=== PATIENT | male | born 1965 | race African-American/Black ===

== ENCOUNTER 2023-08-02 19:09 | Inpatient (IN) | payer BC ==
[2023-08-02] MEDS ORDERED: ACETAMINOPHEN INJECTION 100 ML IVPB ONE (19:51)
[2023-08-02 19:58] LABS: HEMATOCRIT 39.3 % (35.4-49); HEMOGLOBIN 13.3 GM/dL (11.7-16.9); MCH 32.4 pg (25.7-33.7); MCHC 33.8 g/dl (32.0-35.9); MEAN PLT VOLUME 8.6 fl (7.5-11.1); PLATELET COUNT 224 10^3/uL (134-434); RBC 4.09 M/mm3 (4.00-5.60); RDW 12.4 % (11.9-15.9)
[2023-08-02] MEDS: ACETAMINOPHEN 1000 MG/100 ML BAG IVPB ONE (20:03)
[2023-08-02] MEDS: LACTATED RINGERS SOLUTION 1000 ML INFUS.BAG IV ONE (20:03)
[2023-08-02 20:04] LABS: VENOUS BASE EXCESS -3.8 mmol/L (-2-2); VENOUS O2 SATURATION 92.3 % (70-80); VENOUS PCO2 30.3 mmHg (38-52); VENOUS PH 7.424 (7.310-7.410)
[2023-08-02 20:05] LABS: INR 1.17 (0.83-1.09); PROTHROMBIN TIME (PATIENT) 13.2 SEC (9.7-13.0)
[2023-08-02 20:18] LABS: POTASSIUM 3.4 mmol/L (3.5-5.1)
[2023-08-02 20:20] LABS: ALBUMIN 3.6 g/dl (3.4-5.0); CALCIUM 8.3 mg/dL (8.5-10.1)
[2023-08-02 20:23] LABS: CREATININE 1.3 mg/dL (0.55-1.3)
[2023-08-02 20:25] LABS: BILIRUBIN,TOTAL 1.1 mg/dL (0.2-1); TOT PROT 6.5 g/dl (6.4-8.2)
[2023-08-02] MEDS: SODIUM CHLORIDE 0.9% 500 ML INFUS.BAG IV ONE (20:51)
[2023-08-02 21:26] LABS: ANISOCYTOSIS 0; MACROCYTOSIS 0
[2023-08-02] MEDS: IMIPENEM/CILASTATIN SODIUM 500 MG in SODIUM CHLORIDE 100 ML IVPB ONE (21:53)
[2023-08-02 22:00] LABS: EPI CELLS 3 /uL (0-25.1); HYALINE CASTS 1 /uL (0-3.1); URINE APPEARANCE CLEAR; URINE BACTERIA 20 /uL (0-1359); URINE BILIRUBIN NEGATIVE (NEGATIVE); URINE COLOR YELLOW; URINE GLUCOSE (UA) NEGATIVE (NEGATIVE); URINE KETONE NEGATIVE (NEGATIVE); URINE LEUK ESTERASE TRACE (NEGATIVE); URINE NITRITE NEGATIVE (NEGATIVE); URINE PROTEIN NEGATIVE (NEGATIVE); URINE RBC 29 /uL (0-23.9); URINE UROBILINOGEN 0.2 mg/dL (0.2-1.0); URINE WBC 64 /uL (0-25.8)
[2023-08-02 22:10] VITALS: RESP 18
[2023-08-02] MEDS: SODIUM CHLORIDE 1,000 ML IV SCH (22:38)
[2023-08-03] MEDS: KCL 10 MEQ IVPB 10 MEQ/100 ML INFUS.BAG IVPB SCH (01:15)
[2023-08-03 01:44] VITALS: BMI 24.3
[2023-08-03] MEDS: IMIPENEM/CILASTATIN SODIUM 500 MG in SODIUM CHLORIDE 100 ML IVPB SCH ×2 (04:15→16:45)
[2023-08-03 08:55] LABS: HEMATOCRIT 35.2 % (35.4-49); HEMOGLOBIN 12.1 GM/dL (11.7-16.9); MCH 33.3 pg (25.7-33.7); MCHC 34.5 g/dl (32.0-35.9); MEAN CELL VOLUME 96.7 fl (80-96); MEAN PLT VOLUME 9.1 fl (7.5-11.1); PLATELET COUNT 172 10^3/uL (134-434); RBC 3.63 M/mm3 (4.00-5.60); RDW 12.4 % (11.9-15.9); WHITE BLOOD COUNT 20.9 K/mm3 (4.0-10.0)
[2023-08-03 09:08] LABS: POTASSIUM 3.3 mmol/L (3.5-5.1)
[2023-08-03 09:21] LABS: CALCIUM 7.9 mg/dL (8.5-10.1); MAGNESIUM 1.8 mg/dL (1.8-2.4)
[2023-08-03 09:24] LABS: PHOSPHOROUS 2.3 mg/dL (2.5-4.9)
[2023-08-03 09:25] LABS: CREATININE 1.1 mg/dL (0.55-1.3)
[2023-08-03] MEDS: PIPERACILLIN/TAZOB 4.5 GM 4.5 GM in DEXTROSE 5%-WATER 100 ML IVPB SCH (16:16)
[2023-08-05] MEDS: MEROPENEM 1 GM in DEXTROSE 5%-WATER 100 ML IVPB SCH (11:41)
[2023-08-05] MEDS ORDERED: VANCOMYCIN 250 MG/5 ML ORAL SOLUTION (RESTRICTED TO ID ONLY) PO SCH (12:00)
[2023-08-05] MEDS: VANCOMYCIN ORAL SOLUTION 125 MG/2.5 ML PO SCH (12:16)
[2023-08-06] MEDS: ACETAMINOPHEN 325 MG TABLET (FP) PO PRN (05:08)
[2023-08-06 07:57] LABS: BASO % 0.2 % (0-2.0); EOS % 0.9 % (0-4.5); HEMATOCRIT 33.1 % (35.4-49); HEMOGLOBIN 11.3 GM/dL (11.7-16.9); LYMPH % 19.5 % (8-40); MCH 33.2 pg (25.7-33.7); MCHC 34.1 g/dl (32.0-35.9); MEAN CELL VOLUME 97.3 fl (80-96); MEAN PLT VOLUME 8.5 fl (7.5-11.1); MONO % 19.9 % (3.8-10.2); NEUT % 59.5 % (42.8-82.8); PLATELET COUNT 208 10^3/uL (134-434); RDW 12.5 % (11.9-15.9); WHITE BLOOD COUNT 7.2 K/mm3 (4.0-10.0)
[2023-08-06 08:04] LABS: POTASSIUM 3.6 mmol/L (3.5-5.1)
[2023-08-06 08:17] LABS: BLOOD UREA NITROGEN 6.8 mg/dL (7-18); CALCIUM 8.2 mg/dL (8.5-10.1)
[2023-08-06 08:21] LABS: CREATININE 0.8 mg/dL (0.55-1.3)
[2023-08-06 08:22] LABS: BILIRUBIN,TOTAL 0.6 mg/dL (0.2-1); TOT PROT 5.6 g/dl (6.4-8.2)
[2023-08-06 08:27] LABS: ALBUMIN 2.6 g/dl (3.4-5.0)
[2023-08-07 07:55] LABS: BASO % 0.3 % (0-2.0); EOS % 0.9 % (0-4.5); HEMATOCRIT 34.4 % (35.4-49); HEMOGLOBIN 11.8 GM/dL (11.7-16.9); LYMPH % 27.1 % (8-40); MCHC 34.2 g/dl (32.0-35.9); MEAN CELL VOLUME 96.5 fl (80-96); MEAN PLT VOLUME 8.3 fl (7.5-11.1); MONO % 16.7 % (3.8-10.2); PLATELET COUNT 252 10^3/uL (134-434); RBC 3.56 M/mm3 (4.00-5.60); RDW 12.5 % (11.9-15.9); WHITE BLOOD COUNT 6.9 K/mm3 (4.0-10.0)
[2023-08-07 08:35] LABS: ALBUMIN 2.9 g/dl (3.4-5.0); BILIRUBIN,TOTAL 0.6 mg/dL (0.2-1); BLOOD UREA NITROGEN 6.7 mg/dL (7-18); CALCIUM 8.5 mg/dL (8.5-10.1); CREATININE 0.8 mg/dL (0.55-1.3); POTASSIUM 3.8 mmol/L (3.5-5.1); TOT PROT 6.1 g/dl (6.4-8.2)
[2023-08-09 08:33] VITALS: TEMP 98.6
[2023-08-09 14:43] VITALS: BP 125/70; PULSE 66
== END 2023-08-09 15:35 | disposition home or self-care (01) | DRG 698 ==
LOC: JER 19:09 → JERBED 21:01 → J6S 23:54
PROVIDERS: ADMIT Internal Medicine; ATTEND Internal Medicine
PROC: 0T9B70Z Drainage of Bladder with Drainage Device, Via Natural or Artificial Opening (ICD-10-PCS; principal; 2023-08-03)
DX: N99.89 Other postprocedural complications and disorders of genitourinary system (principal); A41.89 Other specified sepsis; N39.0 Urinary tract infection, site not specified; I10 Essential (primary) hypertension; N41.9 Inflammatory disease of prostate, unspecified; D72.829 Elevated white blood cell count, unspecified
CPT/HCPCS: 0241U-QW; 36415; 71046-TC-FY; 74176-TC; 80048; 80053; 81003; 82803; 83605; 83735; 84100; 84484; 85025; 85027; 85610; 86850; 86900; 86901; 87040; 87086; 87186; 87324; 87449; 93005; 93010; 99285-25; J0131

== ENCOUNTER 2023-08-30 21:40 | Inpatient (IN) | payer BC ==
[2023-08-30] MEDS ORDERED: morphine SULFATE 4 MG/ML VIAL ONE (22:50)
[2023-08-30] MEDS: morphine SULFATE 4 MG/ML VIAL IVPUSH ONE (22:53)
[2023-08-30 23:15] LABS: BASO % 0.2 % (0-2.0); HEMATOCRIT 34.9 % (35.4-49); HEMOGLOBIN 11.7 GM/dL (11.7-16.9); LYMPH % 8.6 % (8-40); MCH 31.7 pg (25.7-33.7); MCHC 33.6 g/dl (32.0-35.9); MEAN CELL VOLUME 94.5 fl (80-96); MEAN PLT VOLUME 7.8 fl (7.5-11.1); MONO % 8.7 % (3.8-10.2); NEUT % 82.5 % (42.8-82.8); PLATELET COUNT 389 10^3/uL (134-434); RBC 3.69 M/mm3 (4.00-5.60); RDW 12.8 % (11.9-15.9); WHITE BLOOD COUNT 15.7 K/mm3 (4.0-10.0)
[2023-08-30 23:23] LABS: INR 1.04 (0.83-1.09); PROTHROMBIN TIME (PATIENT) 11.9 SEC (9.7-13.0)
[2023-08-30 23:26] LABS: ACTIVATED PTT 33.9 SECONDS (25.2-36.5)
[2023-08-30 23:27] LABS: POTASSIUM 3.8 mmol/L (3.5-5.1)
[2023-08-30 23:29] LABS: CALCIUM 8.7 mg/dL (8.5-10.1)
[2023-08-30 23:30] LABS: ALBUMIN 3.4 g/dl (3.4-5.0); BLOOD UREA NITROGEN 4.9 mg/dL (7-18)
[2023-08-30 23:33] LABS: CREATININE 1.1 mg/dL (0.55-1.3)
[2023-08-30 23:35] LABS: BILIRUBIN,TOTAL 0.6 mg/dL (0.2-1); TOT PROT 7.5 g/dl (6.4-8.2)
[2023-08-30 23:41] LABS: LACTIC ACID 2.9 mmol/L (0.4-2.0)
[2023-08-31] MEDS: SODIUM CHLORIDE 0.9% 500 ML INFUS.BAG IV ONE (00:09)
[2023-08-31 02:14] LABS: EPI CELLS 0 /uL (0-25.1); HYALINE CASTS 1 /uL (0-3.1); PH,URINE 7.5 (5.0-8.0); URINE APPEARANCE CLOUDY; URINE BACTERIA >9,000 /uL (0-1359); URINE BILIRUBIN NEGATIVE (NEGATIVE); URINE COLOR YELLOW; URINE GLUCOSE (UA) NEGATIVE (NEGATIVE); URINE KETONE NEGATIVE (NEGATIVE); URINE LEUK ESTERASE 2+ (NEGATIVE); URINE NITRITE NEGATIVE (NEGATIVE); URINE PROTEIN TRACE (NEGATIVE); URINE RBC 20 /uL (0-23.9); URINE UROBILINOGEN 0.2 mg/dL (0.2-1.0); URINE WBC 869 /uL (0-25.8)
[2023-08-31] MEDS ORDERED: PIPERACILLIN/TAZOB 3.375 GM 3.375 GM/50 ML BAG IVPB ONE ×2 (02:31→10:23)
[2023-08-31] MEDS: PIPERACILLIN/TAZOB 3.375 GM 3.375 GM in DEXTROSE 5%-WATER - 50 ML IVPB ONE (03:22)
[2023-08-31] MEDS ORDERED: DOCUSATE SODIUM 100 MG CAPSULE (FP) PO PRN (05:19)
[2023-08-31] MEDS ORDERED: morphine SULFATE 4 MG/ML VIAL IVPUSH PRN (05:31)
[2023-08-31 07:19] LABS: HEMATOCRIT 32.7 % (35.4-49); HEMOGLOBIN 11.1 GM/dL (11.7-16.9); MCH 32.3 pg (25.7-33.7); MCHC 33.9 g/dl (32.0-35.9); MEAN CELL VOLUME 95.3 fl (80-96); MEAN PLT VOLUME 7.7 fl (7.5-11.1); PLATELET COUNT 360 10^3/uL (134-434); RBC 3.43 M/mm3 (4.00-5.60); RDW 12.8 % (11.9-15.9); WHITE BLOOD COUNT 27.6 K/mm3 (4.0-10.0)
[2023-08-31 07:36] LABS: MAGNESIUM 1.9 mg/dL (1.8-2.4)
[2023-08-31 07:39] LABS: PHOSPHOROUS 3.3 mg/dL (2.5-4.9)
[2023-08-31] MEDS: D5-1/2NS+20 MEQ KCL - 20 MEQ/1,000 ML INFUS.BAG IV SCH (07:50)
[2023-08-31] MEDS: POLYETHYLENE GLYCOL (HEALTHYLAX) 3350 17 GM PACKET PO SCH (09:55)
[2023-08-31] MEDS: TAMSULOSIN HCL 0.4 MG CAP PO SCH ×2 (09:55→22:04)
[2023-08-31 10:00] LABS: ANISOCYTOSIS 0; HELMET CELLS 0; HOWELL-JOLLY BODIES 0; MACROCYTOSIS 0; OVALOCYTE 0; ROULEAU 0; SICKELED CELLS 0; TARGET CELLS 0; TEAR DROP CELLS 0; TOXIC GRANULATION 0
[2023-08-31] MEDS ORDERED: LISINOPRIL 10 MG TABLET ONE (10:24)
[2023-08-31] MEDS ORDERED: TAMSULOSIN HCL 0.4 MG CAP ONE (10:24)
[2023-08-31] MEDS ORDERED: POLYETHYLENE GLYCOL (HEALTHYLAX) 3350 17 GM PACKET ONE (10:24)
[2023-08-31] MEDS ORDERED: amLODIPine BESYLATE 10 MG TABLET (FP) ONE (10:24)
[2023-08-31] MEDS: amLODIPine BESYLATE 10 MG TABLET (FP) PO SCH (10:48)
[2023-08-31] MEDS: LISINOPRIL 10 MG TABLET PO SCH (10:48)
[2023-08-31] MEDS: PIPERACILLIN/TAZOB 3.375 GM 3.375 GM in DEXTROSE 5%-WATER - 50 ML IVPB SCH ×2 (10:48→18:27)
[2023-08-31 17:46] VITALS: BMI 22.6
[2023-08-31] MEDS: ACETAMINOPHEN 1000 MG/100 ML BAG IVPB PRN (19:16)
[2023-08-31] MEDS: ROSUVASTATIN CA 20 MG TABLET PO SCH (22:04)
[2023-08-31] MEDS: DOCUSATE SODIUM 100 MG CAPSULE (FP) PO SCH (22:04)
[2023-08-31] MEDS: HEPARIN NA (PORCINE) 5,000 UNITS/ML 1ML VIAL SQ SCH (22:04)
[2023-09-01 09:21] LABS: HEMATOCRIT 31.7 % (35.4-49); HEMOGLOBIN 10.7 GM/dL (11.7-16.9); MCH 31.9 pg (25.7-33.7); MCHC 33.7 g/dl (32.0-35.9); MEAN CELL VOLUME 94.6 fl (80-96); MEAN PLT VOLUME 7.9 fl (7.5-11.1); PLATELET COUNT 324 10^3/uL (134-434); RBC 3.35 M/mm3 (4.00-5.60); RDW 12.9 % (11.9-15.9)
[2023-09-01 09:40] LABS: POTASSIUM 3.7 mmol/L (3.5-5.1)
[2023-09-01 09:49] LABS: CALCIUM 8.7 mg/dL (8.5-10.1)
[2023-09-01 09:50] LABS: ALBUMIN 2.8 g/dl (3.4-5.0)
[2023-09-01 09:53] LABS: CREATININE 0.9 mg/dL (0.55-1.3)
[2023-09-01 09:54] LABS: BILIRUBIN,TOTAL 0.9 mg/dL (0.2-1)
[2023-09-01 09:55] LABS: TOT PROT 6.4 g/dl (6.4-8.2)
[2023-09-01 10:12] LABS: ANISOCYTOSIS 0; HELMET CELLS 0; HOWELL-JOLLY BODIES 0; MACROCYTOSIS 0; OVALOCYTE 0; ROULEAU 0; SICKELED CELLS 0; TARGET CELLS 0; TEAR DROP CELLS 0; TOXIC GRANULATION 0
[2023-09-01] MEDS: ACETAMINOPHEN 325 MG TABLET (FP) PO PRN (17:55)
[2023-09-02 09:45] LABS: HEMATOCRIT 29.4 % (35.4-49); HEMOGLOBIN 9.9 GM/dL (11.7-16.9); MCHC 33.7 g/dl (32.0-35.9); MEAN CELL VOLUME 95.1 fl (80-96); MEAN PLT VOLUME 7.9 fl (7.5-11.1); PLATELET COUNT 295 10^3/uL (134-434); RBC 3.09 M/mm3 (4.00-5.60); RDW 12.9 % (11.9-15.9); WHITE BLOOD COUNT 24.1 K/mm3 (4.0-10.0)
[2023-09-02 10:09] LABS: ANISOCYTOSIS 0; MACROCYTOSIS 0
[2023-09-02 10:33] LABS: ALBUMIN 2.3 g/dl (3.4-5.0); POTASSIUM 3.7 mmol/L (3.5-5.1)
[2023-09-02 10:34] LABS: CALCIUM 7.9 mg/dL (8.5-10.1)
[2023-09-02 10:37] LABS: BILIRUBIN,TOTAL 0.9 mg/dL (0.2-1); CREATININE 0.8 mg/dL (0.55-1.3)
[2023-09-02 10:38] LABS: TOT PROT 5.8 g/dl (6.4-8.2)
[2023-09-02] MEDS: ONDANSETRON 4 MG/2 ML VIAL IVPUSH PRN (12:47)
[2023-09-03 09:32] LABS: BASO % 0.1 % (0-2.0); HEMATOCRIT 27.8 % (35.4-49); HEMOGLOBIN 9.4 GM/dL (11.7-16.9); LYMPH % 6.6 % (8-40); MCH 31.6 pg (25.7-33.7); MCHC 33.7 g/dl (32.0-35.9); MEAN CELL VOLUME 93.8 fl (80-96); MEAN PLT VOLUME 7.5 fl (7.5-11.1); MONO % 9.4 % (3.8-10.2); NEUT % 83.9 % (42.8-82.8); PLATELET COUNT 308 10^3/uL (134-434); RBC 2.96 M/mm3 (4.00-5.60); WHITE BLOOD COUNT 19.9 K/mm3 (4.0-10.0)
[2023-09-03 09:47] LABS: POTASSIUM 3.7 mmol/L (3.5-5.1)
[2023-09-03 09:52] LABS: ALBUMIN 2.2 g/dl (3.4-5.0); BLOOD UREA NITROGEN 7.4 mg/dL (7-18); CALCIUM 8.1 mg/dL (8.5-10.1)
[2023-09-03 09:54] LABS: CREATININE 0.8 mg/dL (0.55-1.3)
[2023-09-03 09:57] LABS: BILIRUBIN,TOTAL 1.1 mg/dL (0.2-1); TOT PROT 5.7 g/dl (6.4-8.2)
[2023-09-03] MEDS: MEROPENEM 1 GM in DEXTROSE 5%-WATER 100 ML IVPB SCH ×3 (10:53→18:34)
[2023-09-03] MEDS: POLYETHYLENE GLYCOL (HEALTHYLAX) 3350 17 GM PACKET PO SCH (15:16)
[2023-09-04 09:38] LABS: BASO % 0.1 % (0-2.0); EOS % 0.1 % (0-4.5); HEMATOCRIT 28.2 % (35.4-49); HEMOGLOBIN 9.6 GM/dL (11.7-16.9); LYMPH % 6.7 % (8-40); MCH 31.8 pg (25.7-33.7); MCHC 33.8 g/dl (32.0-35.9); MEAN CELL VOLUME 93.9 fl (80-96); MEAN PLT VOLUME 7.8 fl (7.5-11.1); MONO % 9.1 % (3.8-10.2); PLATELET COUNT 347 10^3/uL (134-434); RBC 3.01 M/mm3 (4.00-5.60); RDW 13.3 % (11.9-15.9); WHITE BLOOD COUNT 19.6 K/mm3 (4.0-10.0)
[2023-09-04 10:01] LABS: BLOOD UREA NITROGEN 7.6 mg/dL (7-18); CALCIUM 8.2 mg/dL (8.5-10.1)
[2023-09-04 10:03] LABS: ALBUMIN 2.1 g/dl (3.4-5.0)
[2023-09-04 10:05] LABS: CREATININE 0.8 mg/dL (0.55-1.3)
[2023-09-05 08:01] LABS: BASO % 0.3 % (0-2.0); EOS % 0.1 % (0-4.5); HEMATOCRIT 28.1 % (35.4-49); HEMOGLOBIN 9.5 GM/dL (11.7-16.9); LYMPH % 9.3 % (8-40); MCH 31.9 pg (25.7-33.7); MCHC 33.6 g/dl (32.0-35.9); MEAN PLT VOLUME 7.4 fl (7.5-11.1); MONO % 10.3 % (3.8-10.2); PLATELET COUNT 368 10^3/uL (134-434); RBC 2.96 M/mm3 (4.00-5.60); RDW 13.2 % (11.9-15.9)
[2023-09-05 08:20] LABS: POTASSIUM 4.2 mmol/L (3.5-5.1)
[2023-09-05 08:24] LABS: CALCIUM 8.4 mg/dL (8.5-10.1)
[2023-09-05 08:25] LABS: BLOOD UREA NITROGEN 6.9 mg/dL (7-18)
[2023-09-05 08:27] LABS: CREATININE 0.8 mg/dL (0.55-1.3)
[2023-09-05 09:04] LABS: ALBUMIN 2.2 g/dl (3.4-5.0)
[2023-09-05 18:11] LABS: GLIADIN ANTIBODY IGA 5 units (0-19); GLIADIN ANTIBODY IGG 2 units (0-19); TRANSGLUTAMINASE IGG 3 U/mL (0-5)
[2023-09-06 07:55] LABS: BASO % 0.3 % (0-2.0); EOS % 0.3 % (0-4.5); LYMPH % 8.6 % (8-40); MCH 31.2 pg (25.7-33.7); MCHC 33.1 g/dl (32.0-35.9); MEAN CELL VOLUME 94.2 fl (80-96); MEAN PLT VOLUME 7.6 fl (7.5-11.1); MONO % 10.5 % (3.8-10.2); NEUT % 80.3 % (42.8-82.8); PLATELET COUNT 418 10^3/uL (134-434); RBC 2.87 M/mm3 (4.00-5.60); RDW 13.6 % (11.9-15.9); WHITE BLOOD COUNT 19.6 K/mm3 (4.0-10.0)
[2023-09-06 08:01] LABS: POTASSIUM 4.2 mmol/L (3.5-5.1)
[2023-09-06 08:03] LABS: CALCIUM 8.5 mg/dL (8.5-10.1)
[2023-09-06 08:04] LABS: ALBUMIN 2.1 g/dl (3.4-5.0); BLOOD UREA NITROGEN 7.6 mg/dL (7-18)
[2023-09-06 08:06] LABS: CREATININE 0.8 mg/dL (0.55-1.3)
[2023-09-06 08:08] LABS: BILIRUBIN,TOTAL 0.8 mg/dL (0.2-1); TOT PROT 5.9 g/dl (6.4-8.2)
[2023-09-08 09:02] LABS: HEMATOCRIT 24.3 % (35.4-49); HEMOGLOBIN 8.2 GM/dL (11.7-16.9); MCH 31.5 pg (25.7-33.7); MEAN CELL VOLUME 92.8 fl (80-96); MEAN PLT VOLUME 7.3 fl (7.5-11.1); PLATELET COUNT 505 10^3/uL (134-434); RBC 2.62 M/mm3 (4.00-5.60); RDW 13.5 % (11.9-15.9); WHITE BLOOD COUNT 21.5 K/mm3 (4.0-10.0)
[2023-09-08 09:20] LABS: POTASSIUM 4.3 mmol/L (3.5-5.1)
[2023-09-08 09:23] LABS: CALCIUM 8.1 mg/dL (8.5-10.1)
[2023-09-08 09:24] LABS: BLOOD UREA NITROGEN 7.9 mg/dL (7-18)
[2023-09-08 09:27] LABS: CREATININE 0.7 mg/dL (0.55-1.3)
[2023-09-08 09:29] LABS: BILIRUBIN,TOTAL 0.6 mg/dL (0.2-1); TOT PROT 6.2 g/dl (6.4-8.2)
[2023-09-08 09:50] LABS: ANISOCYTOSIS 0; MACROCYTOSIS 0
[2023-09-09] MEDS: ENOXAPARIN NA (PORCINE) 40 MG/0.4 ML DISP.SYRIN SQ SCH (09:09)
[2023-09-09 09:28] LABS: HEMATOCRIT 26.3 % (35.4-49); HEMOGLOBIN 8.8 GM/dL (11.7-16.9); MCHC 33.3 g/dl (32.0-35.9); MEAN CELL VOLUME 93.1 fl (80-96); MEAN PLT VOLUME 7.4 fl (7.5-11.1); PLATELET COUNT 585 10^3/uL (134-434); RBC 2.83 M/mm3 (4.00-5.60); RDW 13.8 % (11.9-15.9); WHITE BLOOD COUNT 20.7 K/mm3 (4.0-10.0)
[2023-09-09 09:45] LABS: POTASSIUM 4.4 mmol/L (3.5-5.1)
[2023-09-09 09:47] LABS: ALBUMIN 2.2 g/dl (3.4-5.0); CALCIUM 8.6 mg/dL (8.5-10.1)
[2023-09-09 09:48] LABS: BLOOD UREA NITROGEN 7.7 mg/dL (7-18)
[2023-09-09 09:50] LABS: CREATININE 0.7 mg/dL (0.55-1.3)
[2023-09-09 09:52] LABS: BILIRUBIN,TOTAL 0.6 mg/dL (0.2-1); TOT PROT 6.6 g/dl (6.4-8.2)
[2023-09-09 10:30] LABS: ANISOCYTOSIS 0; MACROCYTOSIS 0
[2023-09-09 14:08] LABS: IG A QN SERUM. 173 mg/dL (90-386)
[2023-09-09] MEDS: IRON SUCROSE INJECTION 200 MG in SODIUM CHLORIDE 100 ML IVPB ONE (20:59)
[2023-09-10 09:47] LABS: HEMOGLOBIN 8.2 GM/dL (11.7-16.9); MCH 30.7 pg (25.7-33.7); MEAN CELL VOLUME 93.1 fl (80-96); MEAN PLT VOLUME 7.4 fl (7.5-11.1); PLATELET COUNT 626 10^3/uL (134-434); RBC 2.68 M/mm3 (4.00-5.60); RDW 14.4 % (11.9-15.9); WHITE BLOOD COUNT 20.7 K/mm3 (4.0-10.0)
[2023-09-10 09:57] LABS: POTASSIUM 4.6 mmol/L (3.5-5.1)
[2023-09-10 10:03] LABS: BLOOD UREA NITROGEN 9.9 mg/dL (7-18)
[2023-09-10 10:04] LABS: CALCIUM 8.4 mg/dL (8.5-10.1)
[2023-09-10 10:05] LABS: ALBUMIN 2.1 g/dl (3.4-5.0)
[2023-09-10 10:07] LABS: CREATININE 0.7 mg/dL (0.55-1.3)
[2023-09-10 10:09] LABS: TOT PROT 6.6 g/dl (6.4-8.2)
[2023-09-10 10:11] LABS: BILIRUBIN,TOTAL 0.6 mg/dL (0.2-1)
[2023-09-10 13:06] LABS: ANISOCYTOSIS 0; MACROCYTOSIS 0
[2023-09-10 13:11] LABS: PLATELET ESTIMATE INCREASED
[2023-09-11 08:31] LABS: HEMATOCRIT 23.2 % (35.4-49); HEMOGLOBIN 7.7 GM/dL (11.7-16.9); MEAN CELL VOLUME 94.1 fl (80-96); MEAN PLT VOLUME 7.4 fl (7.5-11.1); PLATELET COUNT 624 10^3/uL (134-434); RBC 2.47 M/mm3 (4.00-5.60); RDW 14.1 % (11.9-15.9); WHITE BLOOD COUNT 20.1 K/mm3 (4.0-10.0)
[2023-09-11 09:34] LABS: POTASSIUM 4.6 mmol/L (3.5-5.1)
[2023-09-11 09:37] LABS: ALBUMIN 2.2 g/dl (3.4-5.0); BLOOD UREA NITROGEN 8.2 mg/dL (7-18); CALCIUM 8.4 mg/dL (8.5-10.1)
[2023-09-11 09:41] LABS: CREATININE 0.8 mg/dL (0.55-1.3)
[2023-09-11 09:42] LABS: BILIRUBIN,TOTAL 0.5 mg/dL (0.2-1)
[2023-09-11 09:43] LABS: TOT PROT 6.3 g/dl (6.4-8.2)
[2023-09-11 12:06] LABS: PLATELET ESTIMATE INCREASED
[2023-09-12 09:37] LABS: POTASSIUM 4.4 mmol/L (3.5-5.1)
[2023-09-12 09:43] LABS: HEMATOCRIT 24.3 % (35.4-49); MCH 30.7 pg (25.7-33.7); MCHC 33.1 g/dl (32.0-35.9); MEAN CELL VOLUME 92.7 fl (80-96); MEAN PLT VOLUME 7.1 fl (7.5-11.1); PLATELET COUNT 689 10^3/uL (134-434); RBC 2.62 M/mm3 (4.00-5.60); RDW 14.3 % (11.9-15.9); WHITE BLOOD COUNT 20.2 K/mm3 (4.0-10.0)
[2023-09-12 10:05] LABS: CALCIUM 8.7 mg/dL (8.5-10.1)
[2023-09-12 10:06] LABS: ALBUMIN 2.2 g/dl (3.4-5.0); BLOOD UREA NITROGEN 8.6 mg/dL (7-18)
[2023-09-12 10:08] LABS: CREATININE 0.8 mg/dL (0.55-1.3)
[2023-09-12 10:09] LABS: BILIRUBIN,TOTAL 0.5 mg/dL (0.2-1); TOT PROT 6.5 g/dl (6.4-8.2)
[2023-09-12 11:29] LABS: ANISOCYTOSIS 0; HELMET CELLS 0; HOWELL-JOLLY BODIES 0; MACROCYTOSIS 0; OVALOCYTE 0; ROULEAU 0; SICKELED CELLS 0; TARGET CELLS 0; TEAR DROP CELLS 0; TOXIC GRANULATION 0
[2023-09-14] MEDS: ERTAPENEM SODIUM 1 GM in SODIUM CHLORIDE 50 ML IVPB SCH (18:06)
[2023-09-15 08:30] LABS: BASO % 0.2 % (0-2.0); EOS % 0.7 % (0-4.5); HEMATOCRIT 25.7 % (35.4-49); HEMOGLOBIN 8.7 GM/dL (11.7-16.9); LYMPH % 17.8 % (8-40); MCH 31.3 pg (25.7-33.7); MCHC 33.8 g/dl (32.0-35.9); MEAN CELL VOLUME 92.6 fl (80-96); MEAN PLT VOLUME 7.2 fl (7.5-11.1); MONO % 7.2 % (3.8-10.2); NEUT % 74.1 % (42.8-82.8); PLATELET COUNT 730 10^3/uL (134-434); RBC 2.78 M/mm3 (4.00-5.60); RDW 15.2 % (11.9-15.9); WHITE BLOOD COUNT 16.3 K/mm3 (4.0-10.0)
[2023-09-15 08:41] LABS: POTASSIUM 4.6 mmol/L (3.5-5.1)
[2023-09-15 08:43] LABS: CALCIUM 8.9 mg/dL (8.5-10.1)
[2023-09-15 08:44] LABS: BLOOD UREA NITROGEN 7.9 mg/dL (7-18)
[2023-09-15 08:47] LABS: CREATININE 0.9 mg/dL (0.55-1.3)
[2023-09-16 10:18] LABS: BASO % 0.2 % (0-2.0); EOS % 0.9 % (0-4.5); HEMATOCRIT 24.1 % (35.4-49); HEMOGLOBIN 7.9 GM/dL (11.7-16.9); LYMPH % 15.4 % (8-40); MCH 30.3 pg (25.7-33.7); MCHC 32.9 g/dl (32.0-35.9); MEAN CELL VOLUME 92.2 fl (80-96); MEAN PLT VOLUME 7.2 fl (7.5-11.1); MONO % 7.3 % (3.8-10.2); NEUT % 76.2 % (42.8-82.8); PLATELET COUNT 621 10^3/uL (134-434); RBC 2.61 M/mm3 (4.00-5.60); RDW 15.1 % (11.9-15.9); WHITE BLOOD COUNT 13.1 K/mm3 (4.0-10.0)
[2023-09-16 10:23] LABS: POTASSIUM 4.3 mmol/L (3.5-5.1)
[2023-09-16 10:24] LABS: CALCIUM 8.8 mg/dL (8.5-10.1)
[2023-09-16 10:25] LABS: BLOOD UREA NITROGEN 9.5 mg/dL (7-18)
[2023-09-16 10:28] LABS: CREATININE 0.8 mg/dL (0.55-1.3)
[2023-09-17 08:48] LABS: BASO % 0.2 % (0-2.0); EOS % 1.1 % (0-4.5); HEMOGLOBIN 7.8 GM/dL (11.7-16.9); LYMPH % 20.7 % (8-40); MCH 31.4 pg (25.7-33.7); MCHC 33.9 g/dl (32.0-35.9); MEAN CELL VOLUME 92.6 fl (80-96); MEAN PLT VOLUME 7.2 fl (7.5-11.1); MONO % 9.6 % (3.8-10.2); NEUT % 68.4 % (42.8-82.8); PLATELET COUNT 576 10^3/uL (134-434); RBC 2.49 M/mm3 (4.00-5.60); RDW 15.1 % (11.9-15.9); WHITE BLOOD COUNT 12.2 K/mm3 (4.0-10.0)
[2023-09-17 09:05] LABS: POTASSIUM 4.4 mmol/L (3.5-5.1)
[2023-09-17 09:09] LABS: BLOOD UREA NITROGEN 12.5 mg/dL (7-18)
[2023-09-17 09:12] LABS: CALCIUM 8.7 mg/dL (8.5-10.1); CREATININE 0.8 mg/dL (0.55-1.3)
[2023-09-18 12:39] LABS: BASO % 0.3 % (0-2.0); EOS % 1.1 % (0-4.5); HEMATOCRIT 24.5 % (35.4-49); HEMOGLOBIN 8.1 GM/dL (11.7-16.9); LYMPH % 20.1 % (8-40); MCH 31.1 pg (25.7-33.7); MCHC 33.1 g/dl (32.0-35.9); MEAN PLT VOLUME 7.4 fl (7.5-11.1); MONO % 9.1 % (3.8-10.2); NEUT % 69.4 % (42.8-82.8); PLATELET COUNT 533 10^3/uL (134-434); RDW 15.1 % (11.9-15.9); WHITE BLOOD COUNT 9.6 K/mm3 (4.0-10.0)
[2023-09-18 12:57] LABS: POTASSIUM 4.1 mmol/L (3.5-5.1)
[2023-09-18 13:06] LABS: CALCIUM 8.6 mg/dL (8.5-10.1)
[2023-09-18 13:07] LABS: ALBUMIN 2.5 g/dl (3.4-5.0); BLOOD UREA NITROGEN 12.2 mg/dL (7-18)
[2023-09-18 13:09] LABS: CREATININE 0.7 mg/dL (0.55-1.3)
[2023-09-18 13:11] LABS: BILIRUBIN,TOTAL 0.3 mg/dL (0.2-1)
[2023-09-19 07:27] LABS: BASO % 0.2 % (0-2.0); EOS % 1.6 % (0-4.5); HEMOGLOBIN 8.3 GM/dL (11.7-16.9); LYMPH % 30.6 % (8-40); MCH 30.4 pg (25.7-33.7); MCHC 32.2 g/dl (32.0-35.9); MEAN CELL VOLUME 94.4 fl (80-96); MEAN PLT VOLUME 7.4 fl (7.5-11.1); MONO % 7.9 % (3.8-10.2); NEUT % 59.7 % (42.8-82.8); PLATELET COUNT 536 10^3/uL (134-434); RBC 2.75 M/mm3 (4.00-5.60); RDW 15.2 % (11.9-15.9); WHITE BLOOD COUNT 9.9 K/mm3 (4.0-10.0)
[2023-09-19 07:42] LABS: POTASSIUM 4.4 mmol/L (3.5-5.1)
[2023-09-19 07:44] LABS: ALBUMIN 2.6 g/dl (3.4-5.0); CALCIUM 8.5 mg/dL (8.5-10.1)
[2023-09-19 07:45] LABS: BLOOD UREA NITROGEN 10.5 mg/dL (7-18)
[2023-09-19 07:47] LABS: CREATININE 0.7 mg/dL (0.55-1.3)
[2023-09-19 07:49] LABS: BILIRUBIN,TOTAL 0.4 mg/dL (0.2-1); TOT PROT 7.3 g/dl (6.4-8.2)
[2023-09-20] MEDS ORDERED: BACITRACIN ZINC 15 GM TUBE TOPICAL OINTMENT ONE (07:02)
[2023-09-20] MEDS ORDERED: BUPIVACAINE HCL/PF 0.5% (5MG/ML) 10 ML VIAL ONE (07:02)
[2023-09-20] MEDS ORDERED: DEXAMETHASONE SOD PHOSPHATE 4 MG/1 ML VIAL ONE (07:14)
[2023-09-20] MEDS ORDERED: SUCCINYLCHOLINE CHLORIDE 200 MG/10 ML SYRINGE ONE (07:14)
[2023-09-20] MEDS ORDERED: LIDOCAINE HCL/PF 2% SDV 5ML VIAL ONE (07:14)
[2023-09-20] MEDS ORDERED: PROPOFOL 20 ML ONE (07:14)
[2023-09-20] MEDS ORDERED: ONDANSETRON 4 MG/2 ML VIAL ONE (07:14)
[2023-09-20] MEDS ORDERED: MIDAZOLAM HCL 2 MG/2 ML SINGLE DOSE VIAL ONE (07:14)
[2023-09-20] MEDS: BUPIVACAINE HCL/PF 0.5% (5 MG/ML) 30 ML VIAL IJ ONE (08:10)
[2023-09-20 09:06] LABS: BASO % 0.5 % (0-2.0); EOS % 2.2 % (0-4.5); HEMATOCRIT 27.5 % (35.4-49); HEMOGLOBIN 9.2 GM/dL (11.7-16.9); LYMPH % 35.2 % (8-40); MCHC 33.3 g/dl (32.0-35.9); MEAN CELL VOLUME 92.9 fl (80-96); MEAN PLT VOLUME 7.4 fl (7.5-11.1); MONO % 8.6 % (3.8-10.2); NEUT % 53.5 % (42.8-82.8); PLATELET COUNT 528 10^3/uL (134-434); RBC 2.96 M/mm3 (4.00-5.60); RDW 15.9 % (11.9-15.9); WHITE BLOOD COUNT 9.5 K/mm3 (4.0-10.0)
[2023-09-20] MEDS ORDERED: morphine SULFATE 4 MG/ML VIAL IVPUSH PRN (09:07)
[2023-09-20] MEDS ORDERED: ONDANSETRON 4 MG/2 ML VIAL IVPUSH PRN (09:07)
[2023-09-20] MEDS ORDERED: LACTATED RINGERS SOLUTION 1,000 ML IV SCH (09:45)
[2023-09-20] MEDS ORDERED: ERTAPENEM SODIUM 1 GM in SODIUM CHLORIDE 50 ML IVPB SCH (10:00)
[2023-09-20] MEDS: ACETAMINOPHEN 325 MG TABLET (FP) PO PRN (10:33)
[2023-09-20] MEDS: ERTAPENEM SODIUM 1 GM in SODIUM CHLORIDE 50 ML IVPB SCH (11:18)
[2023-09-20] MEDS: POLYETHYLENE GLYCOL (HEALTHYLAX) 3350 17 GM PACKET PO SCH (13:52)
[2023-09-20] MEDS: DOCUSATE SODIUM 100 MG CAPSULE (FP) PO SCH (21:12)
[2023-09-20] MEDS: TAMSULOSIN HCL 0.4 MG CAP PO SCH (21:12)
[2023-09-20] MEDS: ROSUVASTATIN CA 20 MG TABLET PO SCH (21:13)
[2023-09-21 12:50] LABS: BASO % 0.3 % (0-2.0); EOS % 0.3 % (0-4.5); HEMATOCRIT 25.9 % (35.4-49); HEMOGLOBIN 8.4 GM/dL (11.7-16.9); LYMPH % 21.4 % (8-40); MCH 30.4 pg (25.7-33.7); MCHC 32.5 g/dl (32.0-35.9); MEAN CELL VOLUME 93.6 fl (80-96); MEAN PLT VOLUME 7.4 fl (7.5-11.1); MONO % 9.3 % (3.8-10.2); NEUT % 68.7 % (42.8-82.8); PLATELET COUNT 446 10^3/uL (134-434); RBC 2.77 M/mm3 (4.00-5.60); RDW 16.2 % (11.9-15.9); WHITE BLOOD COUNT 11.3 K/mm3 (4.0-10.0)
[2023-09-21 13:13] LABS: POTASSIUM 3.8 mmol/L (3.5-5.1)
[2023-09-21 13:19] LABS: ALBUMIN 2.6 g/dl (3.4-5.0); BLOOD UREA NITROGEN 13.7 mg/dL (7-18); CALCIUM 8.6 mg/dL (8.5-10.1)
[2023-09-21 13:22] LABS: CREATININE 0.8 mg/dL (0.55-1.3)
[2023-09-21 13:24] LABS: BILIRUBIN,TOTAL 0.3 mg/dL (0.2-1); TOT PROT 6.8 g/dl (6.4-8.2)
[2023-09-21 23:44] VITALS: RESP 20
[2023-09-23 15:04] VITALS: BP 113/83; PULSE 93; TEMP 97.9
== END 2023-09-23 15:17 | disposition home health service (06) | DRG 711 ==
LOC: JER 21:40 → JERBED 08-31 05:22 → J8W 08-31 14:53
PROVIDERS: ADMIT Internal Medicine; ATTEND Internal Medicine
PROC: 0DB68ZX Excision of Stomach, Via Natural or Artificial Opening Endoscopic, Diagnostic (ICD-10-PCS; principal; 2023-09-04 13:00)
PROC: 0VC Male Reproductive System, Extirpation (ICD-10-PCS; 2023-09-20)
PROC: 02HV33Z Insertion of Infusion Device into Superior Vena Cava, Percutaneous Approach (ICD-10-PCS; 2023-09-23)
PROC: B518ZZA Fluoroscopy of Superior Vena Cava, Guidance (ICD-10-PCS; 2023-09-23)
DX: N45.3 Epididymo-orchitis (principal); N39.0 Urinary tract infection, site not specified; N45.1 Epididymitis; N50.89 Other specified disorders of the male genital organs; C61 Malignant neoplasm of prostate; N40.0 Benign prostatic hyperplasia without lower urinary tract symptoms; B96.20 Unspecified Escherichia coli [E. coli] as the cause of diseases classified elsewhere; R50.9 Fever, unspecified; I10 Essential (primary) hypertension; E78.5 Hyperlipidemia, unspecified; R11.2 Nausea with vomiting, unspecified; R68.81 Early satiety; R10.13 Epigastric pain; K29.70 Gastritis, unspecified, without bleeding; D72.829 Elevated white blood cell count, unspecified; I86.1 Scrotal varices; N43.2 Other hydrocele; I95.9 Hypotension, unspecified; K29.50 Unspecified chronic gastritis without bleeding; K59.00 Constipation, unspecified; D64.9 Anemia, unspecified
CPT/HCPCS: 36415; 36569; 71046-TC-FY; 72196-TC; 73502-TC-LT-FY; 74177-TC; 76870-TC; 80048; 80053; 80061; 81003; 82378; 82607; 82728; 82746; 82784; 83036; 83516; 83540; 83550; 83605; 83735; 84100; 84155; 84165; 84443; 85025; 85045; 85610; 85730; 86140; 86334; 86850; 86900; 86901; 87040; 87086; 87186; 87491; 87591; 88300-TC; 88305-TC; 93005; 93010; 93306-TC; 94760; 97116-GP; 97162-GP; 99285-25; J0131; J1644; J1756; Q9967

== ENCOUNTER 2024-07-29 15:13 | Emergency (ER) | payer BC ==
[2024-07-29 15:19] VITALS: TEMP 97.9; BMI 24.0
[2024-07-29 18:54] VITALS: BP 143/84; PULSE 71; RESP 18
== END 2024-07-29 18:54 | disposition home or self-care (01) ==
LOC: JER 15:13
DX: M25.571 Pain in right ankle and joints of right foot (principal); R60.0 Localized edema
CPT/HCPCS: 73610-TC-RT-FY; 93971-TC; 99284-25